=== PATIENT | female | born 1960 | race African-American/Black ===

== ENCOUNTER 2017-06-10 18:21 | Emergency (ER) | payer MEDICARE, MEDICAID ==
--- NOTE | 2017-06-10 19:47 | CT ---
CHEST CT SCAN WITHOUT IV CONTRAST 06/10/17 HISTORY: 56-year-old female with sore throat and left sided neck pain. There is some dextroscoliosis of the lower thoracic vertebral column and levoscoliosis of the upper thoracic, lower cervical vertebral column. Old granuloma calcification in the left lung. Lack of IV contrast considerably lowers the sensitivity of this study, particularly in regards in evaluating th e mediastinum and hilar regions. Atherosclerosis of the aorta without evidence of an aneurysm. Possi ble small right renal calculus versus artifact. No pericardial effusion or pleural effusion. IMPRESSION: Atherosclerosis and old granulomatous disease. No pleural effusion or pericardial effusion. Possible small right nonobstructing renal calculus versus artifact. Exam significantly limited without IV co ntrast. POS: JANINA
[2017-06-10] MEDS ORDERED: Ondansetron HCl/PF 4 MG/2 ML Vial ONE (19:48)
[2017-06-10 20:12] LABS: Hemoglobin 13.1 g/dL (12.0-16.0); Mean Corpuscular HGB CONC 31.9 g/dL (32.0-36.0); Mean Corpuscular Hemoglobin 27.2 pg (27.0-31.0); Mean Corpuscular Volume 85.3 fl (81.0-99.0); Mean Platelet Volume 8.8 fL (7.4-10.4); Platelet Count 222 thou/uL (130-400); RBC Distribution Width 14.6 % (11.5-14.5); White Blood Cell (WBC) Count 10.8 thou/uL (4.8-10.8)
[2017-06-10 20:14] LABS: ALT (SGPT) 33 U/L (8-55); AST (SGOT) 24 U/L (5-34); Albumin 4.3 g/dL (3.5-5.0); Alkaline Phosphatase 103 U/L (40-150); Anion Gap 18 mmol/L (10-20); BUN (Urea Nitrogen) 22 mg/dL (9.8-20.1); Bilirubin, Total 0.4 mg/dL (0.2-1.2); Calc. Creatinine Clearance 0 mL/min (70-130); Calcium 11.1 mg/dL (7.8-10.44); Carbon Dioxide 28 mmol/L (22-29); Chloride 98 mmol/L (98-107); Estimated GFR-MDRD 61; Globulin 4.8 g/dL (2.4-3.5); Glucose 129 mg/dL (70-105); Potassium 3.1 mmol/L (3.5-5.1); Protein, Total 9.1 g/dL (6.0-8.3); Sodium 141 mmol/L (136-145)
--- NOTE | 2017-06-10 20:14 | CT ---
NECK SOFT TISSUE CT WITH CONTRAST 06/10/17 CLINICAL HISTORY: Pain. FINDINGS: Parotid and submandibular glands are grossly unremarkable by noncontrast assessment. There is mild n onspecific heterogeneity of the imaged portion of the thyroid gland. There is mild bilateral palatin e tonsillar hypertrophy, more notable on the right which does mildly narrow the oropharyngeal airway . Mild prominence of adenoid tonsils for patient's age. Mild lingual tonsillar hypertrophy. The epig lottis is of normal caliber. No significant mass effect at level of glottis. The subglottic tracheal air column is patent where visualized. Regional lymph nodes are nonenlarged. No obvious drainable f luid collection within limitations of noncontrast technique. Incidental imaging of regional osseous degenerative change. Slight asymmetric prominence of the left side Hettinger's duct, although incomple tely evaluated by noncontrast imaging. This may relate to an acute inflammatory process. This may re late to an acute inflammatory process. No significant surrounding soft tissue edema identified. IMPRESSION: Slight asymmetric prominence of the left side Avelina's duct incompletely assessed without IV contra st. This could relate to an acute inflammatory process. There is no evidence of radiopaque sialolith . Recommend clinical correlation. Evaluation otherwise limited on the basis of noncontrast technique. POS: HUMAIRA
[2017-06-10 20:21] LABS: CKMB 1.1 ng/mL (0-6.6); Troponin I 0.011 ng/mL (< 0.028)
[2017-06-10 20:38] LABS: Band 2 % (5-11); Eosinophils 3 % (0-10); Lymphocytes 25 % (21-51); MDiff Complete? YES; Monocytes 5 % (0-10); Neutrophil 64 % (42-75); PLT Morphology Comment Appears Adequate; RBC Morphology Normal
== END 2017-06-10 21:08 | disposition home or self-care (01) ==
LOC: NAV ERS 18:21
DX: S16.1XXA Strain of muscle, fascia and tendon at neck level, initial encounter (principal); K02.9 Dental caries, unspecified; E10.9 Type 1 diabetes mellitus without complications; I10 Essential (primary) hypertension; F17.210 Nicotine dependence, cigarettes, uncomplicated; Z79.899 Other long term (current) drug therapy; X58.XXXA Exposure to other specified factors, initial encounter
CPT/HCPCS: 70490; 71250; 80053; 82553; 84484; 85025; 93005; 94760; 96374; 96375; J2270; J2405